=== PATIENT | female | born 1955 | race Caucasian/White ===

== ENCOUNTER 2016-06-09 19:00 | Outpatient (CLI) | payer OTHER | END 2016-06-09 19:01 | disposition home or self-care (01) | DX: K76.0 Fatty (change of) liver, not elsewhere classified (principal) ==

== ENCOUNTER 2016-06-16 11:39 | Outpatient (CLI) | payer OTHER | END 2016-06-16 11:40 | DX: Z51.81 Encounter for therapeutic drug level monitoring (principal) ==

== ENCOUNTER 2017-07-23 15:13 | Outpatient (CLI) | payer OTHER ==
[2017-07-23 19:09] LABS: BASOPHILS # (AUTO) 0.1 10^3/uL (0.0-0.1); EOSINOPHILS # (AUTO) 0.1 10^3/uL (0.0-0.7); EOSINOPHILS % (AUTO) 1.7 %; HGB - HEMOGLOBIN 13.9 g/dL (12.0-16.0); LYMPHOCYTES # (AUTO) 3.2 10^3/uL (1.5-3.5); LYMPHOCYTES % (AUTO) 43.2 %; MEAN CORPUSCULAR HEMOGLOBIN 31.4 pg (27.0-31.0); MEAN CORPUSCULAR VOLUME 95.4 fL (81.0-99.0); MEAN PLATELET VOLUME 9.1 fL (7.9-10.8); MONOCYTES # (AUTO) 0.6 10^3/uL (0.0-1.0); MONOCYTES % (AUTO) 8.1 %; NEUTROPHILS # (AUTO) 3.4 10^3/uL (1.5-6.6); PLT - PLATELET COUNT 387 10^3/uL (130-450); RED BLOOD COUNT 4.41 10^6/uL (4.20-5.40); RED CELL DISTRIBUTION WIDTH 13.6 % (12.0-15.0); WHITE BLOOD COUNT 7.4 x10^3/uL (4.8-10.8)
[2017-07-23 19:26] LABS: HB2 TOTAL 14.6 g/dL; HEMOGLOBIN A1C 0.61 g/dL
[2017-07-23 19:46] LABS: ALBUMIN 4.2 g/dL (3.2-5.5); ALBUMIN/GLOBULIN RATIO 1.2 (1.0-2.2); ALKALINE PHOSPHATASE 61 IU/L (42-121); ALT ALANINE AMINOTRANSFERASE 38 IU/L (10-60); AST ASPARTATE AMINOTRANSFERASE 33 IU/L (10-42); BILIRUBIN,TOTAL 1.5 mg/dL (0.2-1.0); BUN - BLOOD UREA NITROGEN 17 mg/dL (6-20); CALCIUM 9.5 mg/dL (8.5-10.3); CARBON DIOXIDE - CO2 30 mmol/L (21-32); CHLORIDE 98 mmol/L (101-111); CHOL/HDL RATIO 2.7 (<4.4); CHOLESTEROL 141 mg/dL; CREATININE 0.6 mg/dL (0.4-1.0); GFR - MDRD 101 (>89); GLUCOSE 104 mg/dL (70-100); HDL CHOLESTEROL 53 mg/dL; LDL CHOLESTEROL,CALCULATED 44 mg/dL; LDL/HDL RATIO 0.8 (<4.4); SODIUM 136 mmol/L (135-145); TOTAL PROTEIN 7.8 g/dL (6.7-8.2); VLDL CHOLESTEROL 44 mg/dL
== END 2017-07-23 23:59 | disposition home or self-care (01) ==
LOC: LAB.WCP 15:13
PROVIDERS: ATTEND Physician Assistant Medical
DX: Z00.00 Encounter for general adult medical examination without abnormal findings (principal); E11.9 Type 2 diabetes mellitus without complications
CPT/HCPCS: 36415; 80050; 80061; 83036; 83721

== ENCOUNTER 2017-10-31 13:30 | Emergency (ER) | payer OTHER ==
--- NOTE | 2017-10-31 15:28 | ED Physician Documentation ---
History of Present Illness - Stated complaint Stated Complaint: EYE REDNESS - Chief complaint Chief Complaint: Heent - Additonal information Additional information: hx from pt erythema to eye no trauma uncomfortable Review of Systems Eyes: reports: Irritation PD PAST MEDICAL HISTORY - Past Medical History Past Medical History: Yes Cardiovascular: Hypertension, High cholesterol Endocrine/Autoimmune: Type 2 diabetes Psych: Depression - Past Surgical History Past Surgical History: Yes HEENT: Tonsil/Adenoidectomy - Present Medications Home Medications: Ambulatory Orders Medication Instructions Recorded Confirmed Telmisartan/Hydrochlorothiazid 1 tab PO DAILY 06/25/14 06/25/14 [Micardis Hct 80-25 mg Tablet] Atorvastatin [Lipitor] 80 mg PO DAILY 10/31/17 10/31/17 Carboxymethylcellulose Sodium 1 drops OP Q1H PRN #1 bottle 10/31/17 [Lubricant Eye Drop] Clopidogrel [Plavix] 75 mg PO DAILY 10/31/17 10/31/17 metFORMIN [Glucophage] 500 mg PO 10/31/17 - Allergies Allergies/Adverse Reactions: Allergies Allergy/AdvReac Type Severity Reaction Status Date / Time No Known Drug Allergies Allergy Verified 10/31/17 13:36 - Social History Does the pt smoke?: No Smoking Status: Never smoker Does the pt drink ETOH?: No Does the pt have substance abuse?: No - Immunizations Immunizations are current?: Yes PD ED PE NORMAL - Vitals Vital signs reviewed: Yes - HEENT HEENT: PERRL, EOMI, Other (L eye medial sub conj hemorrhage, does not extend to cornea, no cells in anterior chamber) Results - Vitals Vitals: Vital Signs - 24 hr 10/31/17 13:35 Temperature 36.8 C Heart Rate 87 Respiratory 20 Rate Blood Pressure 149/100 H O2 Saturation 96 Oxygen O2 Source Room air PD MEDICAL DECISION MAKING - Sepsis Event Vital Signs: Vital Signs - 24 hr 10/31/17 13:35 Temperature 36.8 C Heart Rate 87 Respiratory 20 Rate Blood Pressure 149/100 H O2 Saturation 96 Oxygen O2 Source Room air Departure - Departure Disposition: 01 Home, Self Care Clinical Impression: Subconjunctival hematoma Qualifiers: Laterality: left Qualified Code(s): H11.32 - Conjunctival hemorrhage, left eye Condition: Good Instructions: Subconjunctival Hemorrhage Prescriptions: Carboxymethylcellulose Sodium [Lubricant Eye Drop] 1 drops OP Q1H PRN #1 bottle PRN Reason: eye discomfort
[2017-10-31 15:36] VITALS: BP 115/82
== END 2017-10-31 15:35 | disposition home or self-care (01) ==
LOC: ED 13:30
DX: H11.32 Conjunctival hemorrhage, left eye (principal); I10 Essential (primary) hypertension; E78.00 Pure hypercholesterolemia, unspecified; E11.9 Type 2 diabetes mellitus without complications
CPT/HCPCS: 99282; 99283

== ENCOUNTER 2018-04-13 13:37 | Outpatient (CLI) | payer OTHER ==
--- NOTE | 2018-04-14 09:11 | Mammography Report ---
Reason: SCREENING MAMMO Procedure Date: 04/13/2018 Accession Number: [id number] / [id number] Procedure: MGN - Screening Mammo Dig Bilat CPT Code: FULL RESULT: EXAM: Screening Mammo Dig Bilat DATE: 04/13/2018 1:54 PM CLINICAL HISTORY: Screening encounter. History of benign lump removal above the left breast. No reported risk factors. TECHNIQUE: Bilateral CC and MLO views were obtained. COMPARISON: 06/18/2015 through 11/01/2010. FINDINGS: The breasts demonstrate scattered fibroglandular densities bilaterally. Approximately 8 to 8.5 cm from the right breast nipple in the upper outer breast is a well-circumscribed mildly hyperdense 0.7 cm ovoid nodule which has enlarged compared to 2016 and is new compared to 2015. This requires additional characterization by focused breast ultrasound on the right. A nodule in the left posterior breast is essentially unchanged dating back to 2010 and therefore typically benign. No suspicious masses, clustered microcalcifications, or regions of architectural distortion are identified in the left breast. IMPRESSION: Incomplete examination RECOMMENDATION: Additional evaluation of the right breast with focused ultrasound as above. BIRADS CATEGORY 0: Incomplete examination STANDARD QUALIFYING STATEMENTS: 1. This examination was reviewed with the aid of Computer-Aided Detection (CAD). 2. A negative or benign imaging report should not delay biopsy if clinically suspicious findings are present. Consider surgical consultation if warrented. More than 5% of cancers are not identified by imaging. 3. Dense breasts may obscure an underlying neoplasm.
== END 2018-04-13 13:38 | disposition home or self-care (01) ==
LOC: DI.N 13:37
DX: Z12.31 Encounter for screening mammogram for malignant neoplasm of breast (principal); R92.8 Other abnormal and inconclusive findings on diagnostic imaging of breast
CPT/HCPCS: 77067

== ENCOUNTER 2018-04-22 13:26 | Outpatient (CLI) | payer OTHER ==
--- NOTE | 2018-04-22 14:59 | Ultrasound Report ---
Reason: ABN MAMMO - RT SPEC VIEW US Procedure Date: 04/22/2018 Accession Number: [id number] / [id number] Procedure: US - Breast Unilateral Limited CPT Code: FULL RESULT: EXAM: Breast Unilateral Limited DATE: 04/22/2018 2:43 PM CLINICAL HISTORY: Recall from screening 8mm oval mass right breast 9:00 middle posterior depth. TECHNIQUE: Real-time ultrasound was performed by both the technologist and the radiologist. COMPARISON: Mammographic images 04/13/2018 through 11/01/2010 FINDINGS: Right breast: At 9:00, 4 cm from the nipple in the deep breast tissue, there is a 7 mm anechoic simple cyst corresponding to the mammographic finding recalled from screening. No solid masses or concerning findings. IMPRESSION: Right breast: 7 mm simple cyst corresponds to finding recalled from screening exam. Benign. BI-RADS Category 2. Recommend return to annual screening mammography. BI-RADS CATEGORY 2: Benign findings
== END 2018-04-22 13:27 | disposition home or self-care (01) ==
LOC: DI 13:26
PROVIDERS: ATTEND Physician Assistant Medical
DX: N60.01 Solitary cyst of right breast (principal)
CPT/HCPCS: 76642

== ENCOUNTER 2018-07-07 13:40 | Outpatient (CLI) | payer OTHER ==
[2018-07-07 18:43] LABS: ALBUMIN 4.6 g/dL (3.2-5.5); ALBUMIN/GLOBULIN RATIO 1.3 (1.0-2.2); BILIRUBIN,TOTAL 2.7 mg/dL (0.2-1.0); CALCIUM 9.9 mg/dL (8.5-10.3); CREATININE 0.7 mg/dL (0.4-1.0); TOTAL PROTEIN 8.1 g/dL (6.7-8.2)
[2018-07-07 18:45] LABS: HB2 TOTAL 15.2 g/dL; HEMOGLOBIN A1C 0.71 g/dL; HEMOGLOBIN A1C % 6.4 % (4.6-6.2)
[2018-07-08 12:12] LABS: HEPATITIS C ANTIBODY NON-REACTIVE (NON-REACTIVE)
== END 2018-07-07 13:41 | disposition home or self-care (01) ==
LOC: LAB.WCP 13:40
PROVIDERS: ATTEND Physician Assistant Medical
DX: E11.9 Type 2 diabetes mellitus without complications (principal); Z11.59 Encounter for screening for other viral diseases
CPT/HCPCS: 36415; 80053; 83036; 86803

== ENCOUNTER 2018-07-15 06:39 | Day surgery (SDC) | payer OTHER ==
[2018-07-15] MEDS ORDERED: LACTATED RINGERS 1,000 ML IV ONE (07:33)
[2018-07-15] MEDS ORDERED: MIDAZOLAM 2 MG/2 ML VIAL IVP ONE (08:51)
[2018-07-15] MEDS ORDERED: fentaNYL 250 MCG/5 ML VIAL IVP ONE (08:51)
[2018-07-15 09:37] VITALS: BP 119/75
== END 2018-07-15 06:40 | disposition home or self-care (01) ==
LOC: SDS 06:39
PROVIDERS: ATTEND Surgery
PROC: 0DJD8ZZ Inspection of Lower Intestinal Tract, Via Natural or Artificial Opening Endoscopic (ICD-10-PCS; principal; 2018-07-15 08:30)
DX: Z12.11 Encounter for screening for malignant neoplasm of colon (principal); K64.8 Other hemorrhoids; I10 Essential (primary) hypertension; E11.65 Type 2 diabetes mellitus with hyperglycemia; Z79.02 Long term (current) use of antithrombotics/antiplatelets; Z86.73 Personal history of transient ischemic attack (TIA), and cerebral infarction without residual deficits; Z79.84 Long term (current) use of oral hypoglycemic drugs
CPT/HCPCS: 45378; J7120

== ENCOUNTER 2018-09-07 13:46 | Outpatient (CLI) | payer OTHER ==
--- NOTE | 2018-09-08 09:03 | DEXA Report ---
Reason: POSTMENOPAUSAL STATUS Procedure Date: 09/07/2018 Accession Number: [id number] / [id number] Procedure: DEX - Dexa Spine and/or Hip CPT Code: FULL RESULT: EXAM: Dexa Spine and/or Hip DATE: 09/07/2018 2:17 PM CLINICAL HISTORY: POSTMENOPAUSAL STATUS TECHNIQUE: Dual energy x-ray absorptiometry (DXA) was performed on a Signpost System. Regions measured are the AP Spine, femoral neck, and if needed forearm. COMPARISON: None. In accordance with the International Society for Clinical Densitometry (ISCD) guidelines, data from previous exams may be reanalyzed using current recommendations and techniques. This is done to allow a more accurate basis for comparison with the current study. FINDINGS: The data for the lumbar spine is as follows: BMD (g/cm/cm) T-SCORE Z-SCORE REGION L1 1.223 0.8 1.5 L2 1.214 0.1 0.9 L3 1.370 1.4 2.2 L4 1.495 2.5 3.2 TOTAL 1.334 1.3 2.1 NOTE: All evaluable vertebrae are used for classification The data for the hip is as follows: BMD (g/cm/cm) T-SCORE Z-SCORE REGION Neck 0.983 -0.4 0.5 TOTAL 1.085 0.6 1.2 NOTE: The femoral neck or total proximal femur, whichever is lowest, is used for classification. IMPRESSION: THE WHO CLASSIFICATION BASED ON THE INTERNATIONAL REFERENCE STANDARD IS NORMAL. THE FRACTURE RISK IS NOT INCREASED. RECOMMENDATION: Patients with diagnosis of osteoporosis or osteopenia should have regular bone mineral density assessment. For those eligible for Medicare, routine testing is allowed once every 2 years. Testing frequency can be increased for patients who have rapidly progressing disease or for those who are receiving medical therapy to restore bone mass. COMMENT: World Health Organization (WHO) definitions for osteoporosis and osteopenia: NORMAL BMD: T-score at -1.0 or higher, fracture risk is low OSTEOPENIA BMD: T-score between -1.0 and -2.5, fracture risk is increased. OSTEOPOROSIS BMD: T-score at -2.5 or lower, fracture risk is high. National Osteoporosis Foundation recommends: 1. Obtain adequate dietary calcium (at least 1200 mg per day) and vitamin D (400-800 international units per day). 2. Participate, as appropriate, in regular weightbearing and muscle-strengthening exercise. 3. Avoid tobacco use and reduce alcohol and caffeine intake. 4. For more detailed information see the website at www.NOF.org.
== END 2018-09-07 13:47 | disposition home or self-care (01) ==
LOC: DI 13:46
PROVIDERS: ATTEND Physician Assistant Medical
DX: Z78.0 Asymptomatic menopausal state (principal)
CPT/HCPCS: 77080

== ENCOUNTER 2020-03-29 07:00 | Outpatient (CLI) | payer OTHER ==
--- NOTE | 2020-03-30 16:38 | XRAY Report ---
PROCEDURE: Shoulder 2 View RT INDICATIONS: RT SHOULDER PAIN TECHNIQUE: 2 views of the shoulder were acquired. COMPARISON: None. FINDINGS: Bones: No fractures or dislocations. No suspicious bony lesions. Visualized ribs appear intact. Soft tissues: Ossification noted adjacent to the lateral margin of the humeral head compatible with r otator cuff calcific tendinitis. IMPRESSION: Right rotator cuff calcific tendinitis. Reviewed by: Yessi Ibarra MD, PhD on 03/30/2020 4:37 PM PST Approved by: Yessi Ibarra MD, PhD on 03/30/2020 4:37 PM PST Station ID: [id number]
== END 2020-03-29 23:59 | disposition home or self-care (01) ==
LOC: DI.N 07:00
PROVIDERS: ATTEND Nurse Practitioner
DX: M75.31 Calcific tendinitis of right shoulder (principal)

== ENCOUNTER 2020-12-04 10:44 | Outpatient (CLI) | payer MEDICARE, OTHER ==
--- NOTE | 2020-12-19 08:31 | Mammography Report ---
BILATERAL DIGITAL SCREENING MAMMOGRAM 3D/2D: 12/04/2020 CLINICAL: Routine screening. Comparison is made to exams dated: 04/22/2018 ultrasound, 04/13/2018 mammogram, 06/18/2015 mammogram, 04/12 mammogram, and 11/01/2012 mammogram - [facility]. There are scattered fibrogl andular elements in both breasts. There is a benign cyst in the right breast. No significant masses, calcifications, or other findings are seen in either breast. There has been no significant interval change. IMPRESSION: BENIGN There is no mammographic evidence of malignancy. A 1 year screening mammogram is recommended. This exam was interpreted at Station ID: [id number]. NOTE: For mammograms, a report in lay terms will be sent to the patient. Approximately 15% of breast malignancies will not be visualized mammographically. In the management of a palpable breast mass, a negative mammogram must not discourage biopsy of a clinically suspicious lesion. Electronically Signed By: Quinten Rivas M.D. [email or web address]:12/18/2020 15:31:29 ACR BI-RADS Category 2: Benign Finding(s) 3342F PARENCHYMAL PATTERN: (A) - The breast(s) demonstrate(s) scattered fibroglandular densities. BI-RADS CATEGORY: (2) - 2 RECOMMENDATION: (ANNUAL) - Recommend routine annual screening mammography. [id number] 1 year screening LATERALITY: (B)
== END 2020-12-04 10:45 | disposition home or self-care (01) ==
LOC: DI.N 10:44
DX: Z12.31 Encounter for screening mammogram for malignant neoplasm of breast (principal)

== ENCOUNTER 2021-01-31 18:32 | Outpatient (CLI) | payer MEDICARE, OTHER ==
--- NOTE | 2021-02-01 19:54 | XRAY Report ---
PROCEDURE: Wrist 3 View LT INDICATIONS: LEFT WRIST PAIN TECHNIQUE: 3 views of the wrist were acquired. COMPARISON: None. FINDINGS: Bones: No acute fractures or dislocations. No suspicious bony lesions. Mild negative ulnar varianc e is noted. Mild degenerative changes are seen at the first carpometacarpal joint. Soft tissues: No suspicious soft tissue calcifications. IMPRESSION: No acute osseous abnormality. If symptoms persist or there is continued clinical concern, further adan luation with MRI or CT may be helpful. Reviewed by: Mikel Champion MD on 02/01/2021 7:53 PM PST Approved by: Mikel Champion MD on 02/01/2021 7:53 PM PST Station ID: [id number]
== END 2021-01-31 23:59 | disposition home or self-care (01) ==
LOC: DI.N 18:32
PROVIDERS: ATTEND Physician Assistant
DX: M25.532 Pain in left wrist (principal)

== ENCOUNTER 2021-02-25 14:12 | Outpatient (CLI) | payer MEDICARE, OTHER ==
--- NOTE | 2021-02-25 16:42 | DEXA Report ---
PROCEDURE: Dexa Spine and/or Hip INDICATIONS: POST MENOPAUSAL, OSTEOPENIA TECHNIQUE: Dual energy x-ray absorptiometry (DXA) was performed on a BOND System. Regions measur ed are the AP Spine, femoral neck, and if needed forearm. COMPARISON: September 07, 2018 FINDINGS: Lumbar Spine: Bone Mineral Density 1.295 g/cm/cm,T score 1.0, normal Left Femoral Neck: Bone Mineral Density 0.944 g/cm/cm, T score -0.7, normal Total: Bone Mineral Density 1.092 g/cm/cm, T score 0.7, normal (T score greater or equal to -1.0: NORMAL) (T score from -1.1 to -2.4: OSTEOPENIA) (T score less than or equal to -2.5 to: OSTEOPOROSIS) Impression: Bone mineral density as detailed above. Patients with diagnosis of osteoporosis or osteopenia should have regular bone mineral density assess ment. For those eligible for Medicare, routine testing is allowed once every 2 years. Testing frequ ency can be increased for patients who have rapidly progressing disease or for those who are receivin g medical therapy to restore bone mass. Reviewed by: Efrem Kaur MD on 02/25/2021 4:41 PM PST Approved by: Efrem Kaur MD on 02/25/2021 4:41 PM PST Station ID: [id number]
== END 2021-02-25 14:13 | disposition home or self-care (01) ==
LOC: DI 14:12
PROVIDERS: ATTEND Physician Assistant Medical
DX: N95.8 Other specified menopausal and perimenopausal disorders (principal)

== ENCOUNTER 2021-06-25 16:42 | Outpatient (CLI) | payer MEDICARE, OTHER ==
[2021-06-25 21:00] LABS: BASOPHILS # (AUTO) 0.1 10^3/uL (0.0-0.1); EOSINOPHILS # (AUTO) 0.3 10^3/uL (0.0-0.7); EOSINOPHILS % (AUTO) 3.1 %; HCT - HEMATOCRIT 41.3 % (37.0-47.0); HGB - HEMOGLOBIN 14.1 g/dL (12.0-16.0); LYMPHOCYTES # (AUTO) 3.6 10^3/uL (1.5-3.5); LYMPHOCYTES % (AUTO) 40.2 %; MEAN CORPUSCULAR HGB CONC 34.1 g/dL (32.0-36.0); MEAN CORPUSCULAR VOLUME 93.7 fL (81.0-99.0); MEAN PLATELET VOLUME 11.8 fL (7.9-10.8); MONOCYTES # (AUTO) 0.7 10^3/uL (0.0-1.0); MONOCYTES % (AUTO) 7.6 %; NEUTROPHILS # (AUTO) 4.3 10^3/uL (1.5-6.6); NEUTROPHILS % (AUTO) 47.9 %; PLT - PLATELET COUNT 239 10^3/uL (130-450); RED BLOOD COUNT 4.41 10^6/uL (4.20-5.40); RED CELL DISTRIBUTION WIDTH 14.6 % (12.0-15.0); WHITE BLOOD COUNT 8.9 x10^3/uL (4.8-10.8)
[2021-06-25 21:14] LABS: ESTIMATED AVERAGE GLUCOSE 140 mg/dL (70-100); HEMOGLOBIN A1c% 6.5 % (4.27-6.07)
[2021-06-25 21:20] LABS: ALBUMIN 4.4 g/dL (3.2-5.5); ALBUMIN/GLOBULIN RATIO 1.1 (1.0-2.2); ALKALINE PHOSPHATASE 65 IU/L (42-121); ALT ALANINE AMINOTRANSFERASE 35 IU/L (10-60); AST ASPARTATE AMINOTRANSFERASE 41 IU/L (10-42); BILIRUBIN,TOTAL 1.8 mg/dL (0.2-1.0); BUN - BLOOD UREA NITROGEN 13 mg/dL (6-20); CALCIUM 10.2 mg/dL (8.5-10.3); CARBON DIOXIDE - CO2 28 mmol/L (21-32); CHLORIDE 101 mmol/L (101-111); CHOL/HDL RATIO 2.8 (<4.4); CHOLESTEROL 142 mg/dL; CREATININE 0.8 mg/dL (0.4-1.0); CREATININE,URINE 96.6 mg/dL; GFR - MDRD 72 (>89); GLUCOSE 91 mg/dL (70-100); HDL CHOLESTEROL 50 mg/dL; LDL CHOLESTEROL,CALCULATED 63 mg/dL; LDL/HDL RATIO 1.3 (<4.4); MICROALBUM/CREATININE RATIO,UR 11.4 ug/mg (<30.0); MICROALBUMIN,URINE 1.1 mg/dL (0-300.0); POTASSIUM 3.7 mmol/L (3.5-5.0); SODIUM 140 mmol/L (135-145); TOTAL PROTEIN 8.4 g/dL (6.7-8.2); TRIGLYCERIDES 147 mg/dL; VLDL CHOLESTEROL 29 mg/dL
[2021-06-25 21:31] LABS: THYROID STIMULATING HORMONE 2.5 uIU/mL (0.34-5.60)
== END 2021-06-25 16:43 | disposition home or self-care (01) ==
LOC: LAB.N 16:42
PROVIDERS: ATTEND Physician Assistant Medical
DX: E11.9 Type 2 diabetes mellitus without complications (principal); I10 Essential (primary) hypertension; E78.5 Hyperlipidemia, unspecified
CPT/HCPCS: 36415; 80053; 80061; 82043; 82570; 83036; 83721; 84443; 85025

== ENCOUNTER 2022-04-10 14:33 | Outpatient (CLI) | payer MEDICARE, OTHER ==
--- NOTE | 2022-04-11 14:59 | Mammography Report ---
BILATERAL DIGITAL SCREENING MAMMOGRAM 3D/2D: 04/10/2022 CLINICAL: Routine screening. Comparison is made to exams dated: 12/04/2020 mammogram, 04/22/2018 ultrasound, 04/13/2018 mammogram, mammogram, 04/12/2014 mammogram, and 11/01/2012 mammogram - [facility]. Both breasts are almost entirely fatty (category a/<25% glandular tissue). No significant masses, calcifications, or other findings are seen in either breast. There has been no significant interval change. IMPRESSION: NEGATIVE There is no mammographic evidence of malignancy. A 1 year screening mammogram is recommended. Based on the Tyrer Cuzick model (a risk assessment model) the patients lifetime risk is 2.9% and her 10 year risk is 1.6%. According to the ACR, ACS, and NCCN guidelines, an annual breast MRI exam sabra g with mammogram is recommended if the patients lifetime risk is 20% or greater. This exam was interpreted at Station ID: [id number]. NOTE: For mammograms, a report in lay terms will be sent to the patient. Approximately 15% of breast malignancies will not be visualized mammographically. In the management of a palpable breast mass, a negative mammogram must not discourage biopsy of a clinically suspicious lesion. Electronically Signed By: Ángel lopez/johnathan:04/11/2022 08:00:10 letter sent: No_Letter ACR BI-RADS Category 1: Negative 3341F PARENCHYMAL PATTERN: (F) - The breast(s) demonstrate(s) diffuse fatty replacement. BI-RADS CATEGORY: (1) - 1 Mammogram [id number] 1 year screening LATERALITY: (B)
== END 2022-04-10 14:34 | disposition home or self-care (01) ==
LOC: DI.N 14:33
DX: Z12.31 Encounter for screening mammogram for malignant neoplasm of breast (principal)

== ENCOUNTER 2022-04-15 15:28 | Outpatient (CLI) | payer MEDICARE, OTHER ==
[2022-04-15 19:14] LABS: ALBUMIN 4.7 g/dL (3.2-5.5); ALBUMIN/GLOBULIN RATIO 1.2 (1.0-2.2); ALKALINE PHOSPHATASE 55 IU/L (42-121); ALT ALANINE AMINOTRANSFERASE 37 IU/L (10-60); AST ASPARTATE AMINOTRANSFERASE 36 IU/L (10-42); BILIRUBIN,TOTAL 2.5 mg/dL (0.2-1.0); BUN - BLOOD UREA NITROGEN 23 mg/dL (6-20); CALCIUM 10.4 mg/dL (8.5-10.3); CARBON DIOXIDE - CO2 29 mmol/L (21-32); CHLORIDE 99 mmol/L (101-111); CHOL/HDL RATIO 2.6 (<4.4); CHOLESTEROL 142 mg/dL; CREATININE 0.9 mg/dL (0.4-1.0); GFR - MDRD 62 (>89); GLUCOSE 110 mg/dL (70-100); HDL CHOLESTEROL 54 mg/dL; LDL CHOLESTEROL,CALCULATED 50 mg/dL; LDL/HDL RATIO 0.9 (<4.4); POTASSIUM 3.8 mmol/L (3.5-5.0); SODIUM 139 mmol/L (135-145); TOTAL PROTEIN 8.5 g/dL (6.7-8.2); TRIGLYCERIDES 189 mg/dL; VLDL CHOLESTEROL 38 mg/dL
[2022-04-15 20:34] LABS: ESTIMATED AVERAGE GLUCOSE 128 mg/dL (70-100); HEMOGLOBIN A1c% 6.1 % (4.27-6.07)
== END 2022-04-15 15:29 | disposition home or self-care (01) ==
LOC: LAB.N 15:28
PROVIDERS: ATTEND Physician Assistant Medical
DX: E11.9 Type 2 diabetes mellitus without complications (principal)
CPT/HCPCS: 36415; 80053; 80061; 83036; 83721

== ENCOUNTER 2022-05-20 08:44 | Outpatient (CLI) | payer MEDICARE, OTHER ==
--- NOTE | 2022-05-20 11:23 | Ultrasound Report ---
PROCEDURE: Abdomen Complete INDICATIONS: HYPERBILIRUBINEMIA TECHNIQUE: Real-time scanning was performed of the abdominal and retroperitoneal organs, with image documentatio n. COMPARISON: Abdominal ultrasound 06/09/2016. FINDINGS: Liver: Increased liver echogenicity, commonly mild hepatic steatosis. Gallbladder: The gallbladder appears normal without gallstones or gallbladder wall thickening. There is no pericholecystic fluid. Sonographic Whitehead sign is negative. Biliary ducts: Intrahepatic bile ducts are non-dilated. Extrahepatic bile duct caliber measures 4.5 mm. Normal is 6-7 mm or less in diameter, or 10 mm or less post-cholecystectomy. Pancreas: Visualized portions of the pancreas are sonographically normal. Spleen: Status post splenectomy. Kidneys: Kidneys are normal in size and echotexture. Right kidney measures 10.9 cm long; left kidne y measures 10.4 cm long. No hydronephrosis or nephrolithiasis. No solid masses. No complex renal cy stic lesions which require follow-up. Bilateral simple parapelvic cysts are seen measuring up to 1.3 cm in the right and 2.2 cm on the left. Aorta: Visualized aorta is normal in caliber at less than 3 cm. Iliacs: Proximal common iliac arteries are normal in caliber at less than 2.5 cm. IVC: Intrahepatic inferior vena cava is patent. Miscellaneous: No free abdominal fluid. IMPRESSION: 1.Diffusely increased hepatic echogenicity is nonspecific, but most commonly encountered in the setti ng of hepatic steatosis. However, other causes of hepatocellular disease are not excluded. Recommend clinical correlation. 2.Normal gallbladder. No biliary ductal dilatation. Reviewed by: Mikel Champion MD on 05/20/2022 11:22 AM PDT Approved by: Mikel Champion MD on 05/20/2022 11:22 AM PDT Station ID: [id number]
== END 2022-05-20 08:45 | disposition home or self-care (01) ==
LOC: DI 08:44
PROVIDERS: ATTEND Family Medicine
DX: E80.6 Other disorders of bilirubin metabolism (principal)

== ENCOUNTER 2022-09-24 13:13 | Outpatient (CLI) | payer MEDICARE, OTHER ==
[2022-09-24 17:57] LABS: ALBUMIN 4.5 g/dL (3.2-5.5); ALBUMIN/GLOBULIN RATIO 1.3 (1.0-2.2); ALKALINE PHOSPHATASE 52 IU/L (42-121); ALT ALANINE AMINOTRANSFERASE 34 IU/L (10-60); AST ASPARTATE AMINOTRANSFERASE 30 IU/L (10-42); BASOPHILS # (AUTO) 0.1 10^3/uL (0.0-0.1); BASOPHILS % (AUTO) 1.1 %; BILIRUBIN,TOTAL 1.9 mg/dL (0.2-1.0); BUN - BLOOD UREA NITROGEN 17 mg/dL (6-20); CARBON DIOXIDE - CO2 30 mmol/L (21-32); CHLORIDE 100 mmol/L (101-111); CHOL/HDL RATIO 2.4 (<4.4); CHOLESTEROL 133 mg/dL; CREATININE 0.7 mg/dL (0.4-1.0); EOSINOPHILS # (AUTO) 0.2 10^3/uL (0.0-0.7); EOSINOPHILS % (AUTO) 2.3 %; GFR - MDRD 83 (>89); GLUCOSE 130 mg/dL (70-100); HCT - HEMATOCRIT 42.3 % (37.0-47.0); HDL CHOLESTEROL 55 mg/dL; HGB - HEMOGLOBIN 13.9 g/dL (12.0-16.0); LDL CHOLESTEROL,CALCULATED 48 mg/dL; LDL/HDL RATIO 0.9 (<4.4); LYMPHOCYTES % (AUTO) 41.1 %; MEAN CORPUSCULAR HEMOGLOBIN 30.7 pg (27.0-31.0); MEAN CORPUSCULAR HGB CONC 32.9 g/dL (32.0-36.0); MEAN CORPUSCULAR VOLUME 93.4 fL (81.0-99.0); MEAN PLATELET VOLUME 10.8 fL (7.9-10.8); MONOCYTES # (AUTO) 0.5 10^3/uL (0.0-1.0); MONOCYTES % (AUTO) 7.3 %; NEUTROPHILS # (AUTO) 3.5 10^3/uL (1.5-6.6); NEUTROPHILS % (AUTO) 48.1 %; PLT - PLATELET COUNT 207 10^3/uL (130-450); POTASSIUM 3.9 mmol/L (3.5-5.0); RED BLOOD COUNT 4.53 10^6/uL (4.20-5.40); RED CELL DISTRIBUTION WIDTH 13.4 % (12.0-15.0); SODIUM 137 mmol/L (135-145); TOTAL PROTEIN 8.1 g/dL (6.7-8.2); TRIGLYCERIDES 150 mg/dL; VLDL CHOLESTEROL 30 mg/dL; WHITE BLOOD COUNT 7.3 x10^3/uL (4.8-10.8)
[2022-09-24 18:07] LABS: THYROID STIMULATING HORMONE 2.11 uIU/mL (0.34-5.60)
[2022-09-24 20:38] LABS: ESTIMATED AVERAGE GLUCOSE 128 mg/dL (70-100); HEMOGLOBIN A1c% 6.1 % (4.27-6.07)
== END 2022-09-24 13:14 | disposition home or self-care (01) ==
LOC: LAB.N 13:13
PROVIDERS: ATTEND Physician Assistant Medical
DX: E11.9 Type 2 diabetes mellitus without complications (principal); L65.9 Nonscarring hair loss, unspecified; E78.5 Hyperlipidemia, unspecified
CPT/HCPCS: 36415; 80053; 80061; 83036; 83721; 84443; 85025

== ENCOUNTER 2023-05-25 08:00 | Outpatient (CLI) | payer MEDICARE, OTHER | END 2023-05-25 23:59 | disposition home or self-care (01) | LOC: LAB 08:00 | PROVIDERS: ATTEND Physician Assistant Medical | DX: N39.0 Urinary tract infection, site not specified (principal) | CPT/HCPCS: 87086 ==

== ENCOUNTER 2023-09-04 11:58 | Outpatient (CLI) | payer MEDICARE, OTHER ==
[2023-09-04 18:22] LABS: BASOPHILS # (AUTO) 0.1 10^3/uL (0.0-0.1); BASOPHILS % (AUTO) 1.3 %; EOSINOPHILS # (AUTO) 0.3 10^3/uL (0.0-0.7); EOSINOPHILS % (AUTO) 4.5 %; HCT - HEMATOCRIT 43.4 % (37.0-47.0); LYMPHOCYTES # (AUTO) 2.8 10^3/uL (1.5-3.5); LYMPHOCYTES % (AUTO) 44.4 %; MEAN CORPUSCULAR HEMOGLOBIN 30.6 pg (27.0-31.0); MEAN CORPUSCULAR HGB CONC 32.3 g/dL (32.0-36.0); MEAN CORPUSCULAR VOLUME 94.8 fL (81.0-99.0); MEAN PLATELET VOLUME 11.2 fL (7.9-10.8); MONOCYTES # (AUTO) 0.5 10^3/uL (0.0-1.0); MONOCYTES % (AUTO) 8.4 %; NEUTROPHILS # (AUTO) 2.6 10^3/uL (1.5-6.6); NEUTROPHILS % (AUTO) 41.2 %; PLT - PLATELET COUNT 177 10^3/uL (130-450); RED BLOOD COUNT 4.58 10^6/uL (4.20-5.40); RED CELL DISTRIBUTION WIDTH 13.3 % (12.0-15.0); WHITE BLOOD COUNT 6.4 x10^3/uL (4.8-10.8)
[2023-09-04 18:27] LABS: CREATININE,URINE 230.1 mg/dL; MICROALBUM/CREATININE RATIO,UR 10.4 ug/mg (<30.0); MICROALBUMIN,URINE 2.4 mg/dL
[2023-09-04 18:32] LABS: ALBUMIN 4.9 g/dL (3.2-5.5); ALBUMIN/GLOBULIN RATIO 1.6 (1.0-2.2); ALKALINE PHOSPHATASE 56 IU/L (42-121); ALT ALANINE AMINOTRANSFERASE 56 IU/L (10-60); AST ASPARTATE AMINOTRANSFERASE 53 IU/L (10-42); BILIRUBIN,TOTAL 2.2 mg/dL (0.2-1.0); BUN - BLOOD UREA NITROGEN 16 mg/dL (6-20); CALCIUM 10.7 mg/dL (8.5-10.3); CARBON DIOXIDE - CO2 30 mmol/L (21-32); CHLORIDE 99 mmol/L (101-111); CHOL/HDL RATIO 3.1 (<4.4); CHOLESTEROL 150 mg/dL; CREATININE 0.9 mg/dL (0.6-1.3); GFR - MDRD 62 (>89); GLUCOSE 146 mg/dL (74-104); HDL CHOLESTEROL 48 mg/dL; LDL CHOLESTEROL,CALCULATED 59 mg/dL; LDL/HDL RATIO 1.2 (<4.4); SODIUM 138 mmol/L (135-145); TOTAL PROTEIN 7.9 g/dL (6.4-8.9); TRIGLYCERIDES 215 mg/dL; VLDL CHOLESTEROL 43 mg/dL
[2023-09-04 20:49] LABS: ESTIMATED AVERAGE GLUCOSE 157 mg/dL (70-100); HEMOGLOBIN A1c% 7.1 % (4.27-6.07)
== END 2023-09-04 11:59 | disposition home or self-care (01) ==
LOC: LAB.N 11:58
PROVIDERS: ATTEND Physician Assistant Medical
DX: I10 Essential (primary) hypertension (principal); E11.9 Type 2 diabetes mellitus without complications; E78.5 Hyperlipidemia, unspecified
CPT/HCPCS: 36415; 80053; 80061; 82043; 82570; 83036; 83721; 85025

== ENCOUNTER 2023-09-23 11:21 | Outpatient (CLI) | payer MEDICARE, OTHER ==
--- NOTE | 2023-09-24 08:01 | Mammography Report ---
BILATERAL DIGITAL SCREENING MAMMOGRAM 3D/2D: 09/23/2023 CLINICAL: Routine screening. Comparison is made to exams dated: 04/10/2022 mammogram, 12/04/2020 mammogram, 04/22/2018 ultrasound, mammogram, 06/18/2015 mammogram, and 04/12/2014 mammogram - [facility]. Both breasts are almost entirely fatty (category a/<25% glandular tissue). No significant masses, calcifications, or other findings are seen in either breast. There has been no significant interval change. IMPRESSION: NEGATIVE There is no mammographic evidence of malignancy. A 1 year screening mammogram is recommended. Based on the Tyrer Cuzick model (a risk assessment model) the patient's lifetime risk is 2.8% and her 10 year risk is 1.6%. According to the ACR, ACS, and NCCN guidelines, an annual breast MRI exam sabra g with mammogram is recommended if the patient's lifetime risk is 20% or greater. This exam was interpreted at Station ID: [id number]. NOTE: For mammograms, a report in lay terms will be sent to the patient. Approximately 15% of breast malignancies will not be visualized mammographically. In the management of a palpable breast mass, a negative mammogram must not discourage biopsy of a clinically suspicious lesion. Electronically Signed By: Carolyn gilliland/johnathan:09/23/2023 17:20:00 letter sent: No_Letter ACR BI-RADS Category 1: Negative 3341F PARENCHYMAL PATTERN: (F) - The breast(s) demonstrate(s) diffuse fatty replacement. BI-RADS CATEGORY: (1) - 1 RECOMMENDATION: (ANNUAL) - Recommend routine annual screening mammography. [id number] 1 year screening LATERALITY: (B)
== END 2023-09-23 11:22 | disposition home or self-care (01) ==
LOC: DI.N 11:21
DX: Z12.31 Encounter for screening mammogram for malignant neoplasm of breast (principal)